=== PATIENT | male | born 1990 | race Two or more races ===

== ENCOUNTER 2023-03-06 15:34 | Emergency (ER) | payer OTHER ==
[~2023-03-06] VITALS: Ht 182.9 cm; Wt 72.6 kg
== END 2023-03-06 19:05 | disposition home or self-care (01) ==
LOC: ER 15:35
DX: S46.811A Strain of other muscles, fascia and tendons at shoulder and upper arm level, right arm, initial encounter (principal); X58.XXXA Exposure to other specified factors, initial encounter; Y93.71 Activity, boxing; Y92.89 Other specified places as the place of occurrence of the external cause; Y99.8 Other external cause status

== ENCOUNTER 2024-07-17 14:35 | Inpatient (IN) | payer OTHER ==
[~2024-07-17] VITALS: Ht 182.9 cm; Wt 78.0 kg
[2024-07-17] MEDS ORDERED: 0.9 % SODIUM CHLORIDE 1,000 ML IV ONE (15:15)
--- NOTE | 2024-07-17 15:15 | NUR ---
SE REICBE MASCULINO ALERTA Y ORIENTADA X3 CUAL REFIERE PRESENTO MAREO, SUDORACION Y VOMITOS X1 HOY EN LA TARDE LUEGO DE TERMINAR UN ENTRENAMIENTO DE BOXEO. SE REALIZA GOVIND DE S/V, SE REALIZA EKG Y SE PRESENTA A .
--- NOTE | 2024-07-17 15:42 | NUR ---
SE ORIENTA A PACIENTE SOBRE TX MEDICO, REFIERE ENTENDER. SE REALIZAN MUESTRAS DE LABORATORIO BAJO MEDIDAS ASEPTICAS. SE ADMINISTRA IV'S TONY ORDEN MEDICA. SE COORDINA CT Y MACKENZIE X. SE NOTIFICA ABG A . PACIENTE MANEJADO POR JOEY. PENDIENTE RE-EVALUACION MEDICA.
[2024-07-17 15:51] LABS: MEAN CELL VOLUME 90.7 fL (80.0-100.00); MEAN CORPUSCULAR HEMOGLOBIN 30.2 pg (27.00-32.0); MEAN CORPUSCULAR HGB CONC 33.3 g/dl (32.0-36.0); PLATELET COUNT 291 K/uL (150-450); RED BLOOD COUNT 5.62 M/uL (4.00-6.00)
[2024-07-17] MEDS ORDERED: FAMOtidine 10 MG/ML (4ML VIAL) IV ONE (16:00)
[2024-07-17] MEDS ORDERED: PIPERACILLIN/TAZOBACTAM SODIUM 3.375 GM VIAL IV ONE ×2 (16:00→16:05)
[2024-07-17] MEDS ORDERED: FAMOTIDINE/PF 20 MG/2 ML VIAL ONE (16:05)
[2024-07-17 16:17] LABS: ALBUMIN 5.5 gm/dL (3.4-5.0); BILIRUBIN TOTAL 0.65 mg/dL (0.3-1.2); CALCIUM 11.8 mg/dL (8.5-10.1); CREATININE SERUM 1.63 mg/dL (0.70-1.30); GFR 48.97; GLOBULINA 4.7 G/DL (2.4-3.5); POTASSIUM 3.17 mEq/L (3.5-5.1)
[2024-07-17 16:19] LABS: COVID-19 AG NEGATIVE (NEGATIVE)
[2024-07-17 16:21] LABS: INFLUENZA A AG NEGATIVE (NEGATIVE)
[2024-07-17 16:30] LABS: TOTAL PROTEIN 10.2 gm/dL (6.4-8.2)
--- NOTE | 2024-07-17 16:37 | NUR ---
SE TRASLADA PACIENTE A UNIDAD DE DOLOR DE PECHO CAMA #18. SE CONECTA A MONITOR CARDIACO Y OXIMETRIA DE PULSO. SE ENTREGA A . PENDIENTE CONSULTA CON .
[2024-07-17] MEDS ORDERED: MORPHINE SULFATE 2 MG/ML SYRINGE IV ONE (16:45)
[2024-07-17] MEDS ORDERED: ONDANSETRON HCL 2 MG/ML VIAL ONE (16:50)
[2024-07-17] MEDS ORDERED: ONDANSETRON HCL 2 MG/ML VIAL IV ONE (17:15)
[2024-07-17] MEDS ORDERED: PROMETHAZINE HCL 25 MG/ML AMPUL ONE (18:01)
[2024-07-17] MEDS ORDERED: MORPHINE SULFATE 4 MG/ML CARTRIDGE IV PRN (18:30)
[2024-07-17] MEDS ORDERED: POTASSIUM CHLORIDE IN WATER 100 ML IV ONE (18:30)
[2024-07-17] MEDS ORDERED: ONDANSETRON HCL 4 MG in 0.9 % SODIUM CHLORIDE 50 ML IV PRN (18:30)
[2024-07-17] MEDS ORDERED: 0.9 % SODIUM CHLORIDE 1,000 ML IV SCH ×2 (18:30)
[2024-07-17] MEDS ORDERED: ACETAMINOPHEN 500 MG GEL..CAP PO PRN (18:30)
[2024-07-17 19:30] VITALS: BP 122/75
[2024-07-17 19:37] VITALS: BP 122/75; O2SAT 100
[2024-07-17 19:37] LABS: INR 1.09; PROTHROMBIN TIME 11.8 SECONDS (9.0-11.5)
[2024-07-17 19:44] LABS: MAGNESIUM 1.7 mg/dL (1.8-2.4)
[2024-07-17] MEDS ORDERED: POTASSIUM CHLORIDE IN WATER 40 MEQ/100 ML PIGGYBAG IV ONE (19:59)
[2024-07-17] MEDS ORDERED: DEXTROSE 50 % IN WATER 0.5 G/ML DISP.SYRIN IV ONE (20:09)
[2024-07-17 20:10] LABS: PARTIAL THROMBOPLASTIN TIME 24.2 SECONDS (22.0-34.0)
[2024-07-17 20:23] LABS: D DIMER < 0.19 MG/L
[2024-07-17 20:30] VITALS: BP 134/79; O2SAT 100
[2024-07-17 20:43] LABS: PH,URINE 6.5 (5.0-8.0); URINE APPEARANCE Clear; URINE BILIRRUBIN Negative (NEGATIVE); URINE BLOOD Negative; URINE COLOR Yellow; URINE GLUCOSE Negative (NEGATIVE); URINE LEUKOCYTE Negative; URINE NITRATE Negative
[2024-07-17 20:46] LABS: URINE BACTERIA 20.8 uL (0.0-1933); URINE CAST 4.12 uL (0.0-1.40); URINE EPITHELIAL CELLS 5.8 uL (0.0-38.8); URINE RBC 2.2 uL (0.0-20.8); URINE WBC 3.4 uL (0.0-23.2)
[2024-07-17 21:09] LABS: URINE KETONE >=160 (NEGATIVE); URINE PROTEIN 100 (NEGATIVE)
[2024-07-17] MEDS ORDERED: MAGNESIUM SULFATE IN WATER 50 ML IV ONE (21:15)
[2024-07-17] MEDS ORDERED: POTASSIUM PHOS,M-BASIC-D-BASIC 15 MM in 0.9 % SODIUM CHLORIDE 250 ML IV ONE (21:15)
[2024-07-17 21:22] LABS: COCAINE NEGATIVE (NEGATIVE); METHADONE NEGATIVE (NEGATIVE); OPIATES NEGATIVE (NEGATIVE); THC ( Cannabinoids) POSITIVE (NEGATIVE)
[2024-07-17 21:30] VITALS: BP 129/77; O2SAT 100
[2024-07-17 22:30] VITALS: BP 147/90; O2SAT 100
[2024-07-17 23:30] VITALS: BP 145/73; O2SAT 100
[2024-07-17] MEDS ORDERED: DIPHENHYDRAMINE HCL 50 MG/ML VIAL 1ML ONE (23:53)
[2024-07-18] VITALS (12 sets, daily range): BP systolic 111–145; BP diastolic 65–99; O2SAT 98–100
[2024-07-18] MEDS ORDERED: ONDANSETRON HCL 2 MG/ML VIAL ONE (00:07)
[2024-07-18] MEDS ORDERED: CEFTRIAXONE SODIUM 2,000 MG in 0.9 % SODIUM CHLORIDE 100 ML IV SCH (09:00)
[2024-07-18] MEDS ORDERED: MAGNESIUM SULFATE IN WATER 50 ML IV ONE (09:45)
[2024-07-18] MEDS ORDERED: RINGERS SOLUTION,LACTATED 1,000 ML IV SCH (09:45)
[2024-07-18] MEDS ORDERED: POTASSIUM BICARBONATE/CIT AC 25 MEQ TABLET.EFF PO NR (10:00)
[2024-07-18 12:19] LABS: HEMATOCRIT 41.6 % (39.0-48.0); HEMOGLOBIN 14.3 g/dL (13-16.00); MEAN CELL VOLUME 90.5 fL (80.0-100.00); MEAN CORPUSCULAR HGB CONC 34.3 g/dl (32.0-36.0); PLATELET COUNT 216 K/uL (150-450); RED CELL DISTRIBUTION WIDTH 13.3 % (11.5-14.5)
[2024-07-18] MEDS ORDERED: POTASSIUM PHOS,M-BASIC-D-BASIC 3 MM/ML VIAL IV SCH (13:00)
[2024-07-18 13:23] LABS: ALBUMIN 3.6 gm/dL (3.4-5.0); BILIRUBIN TOTAL 0.59 mg/dL (0.3-1.2); CALCIUM 9.2 mg/dL (8.5-10.1); CREATININE SERUM 1.15 mg/dL (0.70-1.30); GFR 73.24; GLOBULINA 3.3 G/DL (2.4-3.5); MAGNESIUM 2.2 mg/dL (1.8-2.4); PHOSPHOROUS 2.9 mg/dL (2.5-4.9); POTASSIUM 3.66 mEq/L (3.5-5.1); TOTAL PROTEIN 6.9 gm/dL (6.4-8.2)
[2024-07-19] VITALS: O2SAT 97
[2024-07-19 02:03] VITALS: BP 104/76; O2SAT 99
[2024-07-19 05:50] VITALS: O2SAT 97
[2024-07-19 07:00] LABS: HEMATOCRIT 42.8 % (39.0-48.0); HEMOGLOBIN 14.3 g/dL (13-16.00); MEAN CELL VOLUME 92.3 fL (80.0-100.00); MEAN CORPUSCULAR HEMOGLOBIN 30.7 pg (27.00-32.0); MEAN CORPUSCULAR HGB CONC 33.3 g/dl (32.0-36.0); PLATELET COUNT 229 K/uL (150-450); RED BLOOD COUNT 4.64 M/uL (4.00-6.00)
[2024-07-19 07:38] LABS: ALBUMIN 3.7 gm/dL (3.4-5.0); BILIRUBIN TOTAL 0.6 mg/dL (0.3-1.2); CALCIUM 9.6 mg/dL (8.5-10.1); CREATININE SERUM 1.12 mg/dL (0.70-1.30); GFR 75.5; POTASSIUM 4.63 mEq/L (3.5-5.1); TOTAL PROTEIN 6.7 gm/dL (6.4-8.2)
[2024-07-19 07:39] LABS: PHOSPHOROUS 3.5 mg/dL (2.5-4.9)
[2024-07-19] MEDS ORDERED: CEFTRIAXONE SODIUM 2,000 MG VIAL ONE (08:06)
[2024-07-19 10:18] VITALS: BP 106/58; O2SAT 97
[2024-07-19 10:49] VITALS: O2SAT 98
[2024-07-19 17:37] VITALS: BP 116/75; O2SAT 100
== END 2024-07-19 16:02 | disposition home or self-care (01) | DRG 684 ==
LOC: ER 14:35 → ICU-2 19:22 → MEDI 07-18 16:52
PROVIDERS: General Practice; Internal Medicine; ADMIT Internal Medicine; ATTEND Internal Medicine
PROC: BW28ZZZ Computerized Tomography (CT Scan) of Head (ICD-10-PCS; principal; 2024-07-17)
PROC: BW21ZZZ Computerized Tomography (CT Scan) of Abdomen and Pelvis (ICD-10-PCS; 2024-07-17)
PROC: B030ZZZ Magnetic Resonance Imaging (MRI) of Brain (ICD-10-PCS; 2024-07-17)
PROC: B345ZZZ Ultrasonography of Bilateral Common Carotid Arteries (ICD-10-PCS; 2024-07-17)
PROC: B246ZZZ Ultrasonography of Right and Left Heart (ICD-10-PCS; 2024-07-17)
PROC: 4A12X4Z Monitoring of Cardiac Electrical Activity, External Approach (ICD-10-PCS; 2024-07-19)
DX: N17.8 Other acute kidney failure (principal); I44.1 Atrioventricular block, second degree; E86.0 Dehydration; E87.8 Other disorders of electrolyte and fluid balance, not elsewhere classified; D72.828 Other elevated white blood cell count; R55 Syncope and collapse
CPT/HCPCS: 70544

== ENCOUNTER 2024-11-09 06:03 | Emergency (ER) | payer OTHER ==
[~2024-11-09] VITALS: Ht 182.9 cm; Wt 83.9 kg
[2024-11-09] MEDS ORDERED: KETOROLAC TROMETHAMINE 60 MG VIAL IM STA (06:25)
[2024-11-09] MEDS ORDERED: OxyCODONE HCL 5 MG TABLET (ROXICODONE) PO STA (06:26)
[2024-11-09] MEDS ORDERED: KETOROLAC TROMETHAMINE 60 MG VIAL IM ONE (06:29)
== END 2024-11-09 06:36 | disposition home or self-care (01) ==
LOC: ER 06:03
DX: S60.222A Contusion of left hand, initial encounter (principal); S70.02XA Contusion of left hip, initial encounter; S70.12XA Contusion of left thigh, initial encounter; V19.9XXA Pedal cyclist (driver) (passenger) injured in unspecified traffic accident, initial encounter; Y93.89 Activity, other specified; Y92.89 Other specified places as the place of occurrence of the external cause; Y99.9 Unspecified external cause status